=== PATIENT | male | born 1985 | race Native Hawaiian/Other Pacific Islander ===

== ENCOUNTER 2017-07-18 05:44 | Emergency (ER) | payer OTHER ==
[2017-07-18 05:50] VITALS: TEMP 97.1
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
[2017-07-18 07:33] VITALS: BP 144/75; PULSE 77; RESP 16
== END 2017-07-18 07:40 | disposition home or self-care (01) ==
LOC: EC 05:44
DX: K40.90 Unilateral inguinal hernia, without obstruction or gangrene, not specified as recurrent (principal); R05 Cough; F17.200 Nicotine dependence, unspecified, uncomplicated
CPT/HCPCS: 99283

== ENCOUNTER 2017-08-06 11:39 | Emergency (ER) | payer OTHER ==
[2017-08-06 11:47] VITALS: RESP 18
[2017-08-06] MEDS ORDERED: SODIUM CHLORIDE 0.9% 500 ML IV STA (12:20)
[2017-08-06] MEDS ORDERED: RX INFO: IV CONTRAST WAS GIVEN 1 EACH MISC MISCELLANE PRN (12:20)
[2017-08-06] MEDS ORDERED: SODIUM CHLORIDE 0.9% 1,000 ML IV STA (12:20)
[2017-08-06 12:49] LABS: Basophils % (A) 1 %; CH 30.6; CHCM 34.5; Eosinophils # (A) 0.2 k/uL (0-0.7); Eosinophils % (A) 2 %; HCT 46.1 % (39.0-53.0); HDW 2.41; HGB 15.4 gm/dL (13.0-17.5); Luc # (Auto) 0.14; Luc % (Auto) 2; Lymphocytes # (A) 1.8 k/uL (1.0-4.8); Lymphocytes % (A) 23 %; MCH 29.7 pg (25.0-35.0); MCHC 33.3 g/dL (31.0-37.0); Mean Platelet Volume 7.4; Monocytes # (A) 0.4 k/uL (0-1.0); Monocytes % (A) 5 %; Neutrophils # (A) 5.4 k/uL (1.3-7.7); Neutrophils % (A) 67 %; RBC 5.18 m/uL (4.30-5.90); RDW 14.2 % (11.5-15.5); WBC (Perox) 8.13
[2017-08-06 13:03] LABS: ALT 30 U/L (21-72); AST 19 U/L (17-59); Alkaline Phosphatase 72 U/L (38-126); Amylase 34 U/L (30-110); Anion Gap 11 mmol/L; Blood Urea Nitrogen 13 mg/dL (9-20); Calcium 9.2 mg/dL (8.4-10.2); Carbon Dioxide 25 mmol/L (22-30); Chloride 104 mmol/L (98-107); Glucose 72 mg/dL (74-99); Non-African American GFR(MDRD) >60 (>60 ml/min/1.73 sqM); Potassium 4.2 mmol/L (3.5-5.1); Sodium 140 mmol/L (137-145); Total Bilirubin 0.2 mg/dL (0.2-1.3); Total Protein 7.3 g/dL (6.3-8.2)
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
[2017-08-06 13:56] LABS: Appearance,Urine Clear (Clear); Bilirubin,Urine Negative (Negative); Glucose,Urine (UA) Negative (Negative); Ketones,Urine Negative (Negative); Leukocyte Esterase,Urine Negative (Negative); Nitrite,Urine Negative (Negative); PH, Urine 6.5 (5.0-8.0); Protein,Urine Negative (Negative); Specific Gravity,Urine 1.024 (1.001-1.035); UA Billing (MACRO vs. MICRO) CHEM; Urobilinogen,Urine <2.0 mg/dL (<2.0)
--- NOTE | 2017-08-06 13:57 | CT ---
EXAMINATION TYPE: CT abdomen pelvis w con DATE OF EXAM: 08/06/2017 COMPARISON: NONE HISTORY: 31-year-old male complains of left side inguinal pain. Patient claims known left inguinal he rnia. TECHNIQUE: Contiguous axial scanning of the abdomen and pelvis following administration of 100 ml Omn ipaque 300 IV contrast. Delayed images through the kidneys and coronal/sagittal reconstructions perf ormed. CT DLP: 874.6 mGycm Automated exposure control for dose reduction was used. FINDINGS: The heart is normal size without pericardial effusion. Strandy atelectasis or scarring at the base of the right middle lobe. No pleural effusion. Liver is enlarged measuring 21.1 cm craniocaudal. No focal lesion is seen. No biliary ductal dilatation. Portal venous system is patent. Gallbladder, adrenal glands, kidneys, spleen, and pancreas show no gross abnormal body. No dilated small bowel, free fluid, or free air. Portions of a normal appendix are seen. There is mod erate stool burden without pericolonic inflammatory change. Scattered small mesenteric lymph nodes are noted. Bladder is urine distended. No abnormal fluid collection the pelvis or pelvic lymphadenopathy seen. N o sizable inguinal or femoral canal hernia seen. Bones: Suspected old healed fracture deformity of the left L4 and L2 transverse processes. No osseous destructive process. IMPRESSION: 1. NO SIZABLE INGUINAL OR FEMORAL CANAL HERNIA SEEN. 2. HEPATOMEGALY. CLINICALLY CORRELATE. 3. MODERATE STOOL BURDEN.
[2017-08-06 14:20] VITALS: BP 115/55; PULSE 61; TEMP 97.7
[2017-08-06] MEDS ORDERED: KETOROLAC 30 MG/ML 1 ML VIAL IVP SCH (18:00)
== END 2017-08-06 14:32 | disposition home or self-care (01) ==
LOC: EC 11:39
DX: K40.91 Unilateral inguinal hernia, without obstruction or gangrene, recurrent (principal); F17.200 Nicotine dependence, unspecified, uncomplicated
CPT/HCPCS: 36415; 80053; 82150; 83690; 85025; 81003; 87086; 74177; 99284; 96374; 96361; J1885; Q9967

== ENCOUNTER 2017-08-26 08:05 | Day surgery (SDC) | payer OTHER ==
[~2017-08-26 08:05] MED LIST: HEPARIN SODIUM,PORCINE 5,000 UNIT/ML 1 ML VIAL SQ ONE; Pre Op ABX Message 1 EACH MISC MISCELLANE ONE
[2017-08-26] MEDS ORDERED: LACTATED RINGERS 1,000 ML IV ONE ×3 (08:55→11:32)
[2017-08-26] MEDS ORDERED: ONDANSETRON 4 MG/2 ML VIAL IVP ONE ×2 (09:11→09:17)
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
[2017-08-26] MEDS ORDERED: DEXAMETHASONE SOD PHOSPHATE 10 MG/ML 1 ML VIAL IV ONE ×2 (09:13→09:17)
[2017-08-26] MEDS ORDERED: LACTATED RINGERS 1,000 ML IV SCH (09:17)
[2017-08-26] MEDS ORDERED: LIDOCAINE 1% INJ 10MG/ML (20 ML MDV) ONE (09:23)
[2017-08-26] MEDS ORDERED: NEOSTIGMINE 1 MG/ML 10 ML VIAL ONE (09:23)
[2017-08-26] MEDS ORDERED: PROPOFOL 10 MG/ML 20 ML VIAL IV ONE (09:23)
[2017-08-26] MEDS ORDERED: GLYCOPYRROLATE 0.2 MG/ML 2 ML VIAL ONE (09:23)
[2017-08-26] MEDS ORDERED: ROCURONIUM BROMIDE 10 MG/ML 10 ML VIAL IV ONE (09:23)
[2017-08-26] MEDS ORDERED: MIDAZOLAM 2 MG/2 ML VIAL ONE (09:23)
[2017-08-26] MEDS ORDERED: ceFAZolin 1,000 MG VIAL ONE (09:23)
[2017-08-26] MEDS ORDERED: fentaNYL (PF) 50 MCG/ML 2 ML AMP ONE (09:23)
[2017-08-26] MEDS ORDERED: BUPIVACAINE (PF) 0.25% 30 ML VIAL SQ ONE (09:41)
[2017-08-26] MEDS ORDERED: SODIUM CHLORIDE 0.9% 50 ML with ceFAZolin 2,000 MG IV ONE ×2 (09:42)
--- NOTE | 2017-08-26 10:24 | P.OP ---
Date of Procedure: 08/26/17 Preoperative Diagnosis: Left inguinal hernia Postoperative Diagnosis: Left inguinal hernia Procedure(s) Performed: Laparoscopic robotic-assisted repair of left inguinal hernia Anesthesia: TAHIR Surgeon: Fredy Contreras Estimated Blood Loss (ml): 5 Pathology: none sent Condition: stable Disposition: PACU Description of Procedure: The patient's placed on the operating table in the supine position. The patient received general anesthesia. The patient's abdomen was prepped and draped in usual sterile fashion. The skin was anesthetized 1% local Xylocaine at the incision sites. Using an 11 blade a skin incision was made at the umbilicus. The fascia was grasped with a Teo and then the peritoneal cavity was entered with the Veress needle. Position of the Veress needle was confirmed with a positive drop test. After adequate insufflation a 5 mm trocar was placed into the peritoneal cavity. The Laparoscope was placed the peritoneal cavity. And a robotic 8 mm trocar was placed in the right lateral position and then another 8 mm robotic trochars placed in the left lateral position. The original 5 mm trocar was exchanged for a 12 mm trocar. The patient was placed in reverse Trendelenburg and then the patient was docked to the robot. Next the peritoneum over top of the hernia was incised and then using blunt and sharp dissection and electrocautery the hernia sac was dissected free from the floor of the inguinal canal. The hernia sac was completely reduced into the peritoneal cavity. And then using the [employer] superior court justice mesh the hernia was repaired. The peritoneum was then sutured with 20V lock suture. The patient was then undocked the robot. The needle was withdrawn from the peritoneal cavity. The umbilical trocar site was closed with 0 Ethibond suture. The skin was closed interrupted 3-0 Monocryl suture. Dermabond dressing was applied. Patient was sent to recovery in stable condition.
[2017-08-26 10:48] VITALS: RESP 16; TEMP 97.3
[2017-08-26] MEDS: HYDROmorphone 0.5 MG/0.5 ML SYRINGE IVP PRN ×2 (12:05→12:18)
[2017-08-26] MEDS ORDERED: HYDROcodone/APAP 7.5-325MG 1 EACH TAB PO ONE (12:39)
[2017-08-26 13:40] VITALS: BP 106/66; PULSE 50
== END 2017-08-26 14:19 | disposition home or self-care (01) ==
LOC: OR 08:05
PROVIDERS: ATTEND Surgery
DX: K40.90 Unilateral inguinal hernia, without obstruction or gangrene, not specified as recurrent (principal); I48.91 Unspecified atrial fibrillation; F17.200 Nicotine dependence, unspecified, uncomplicated; Z86.73 Personal history of transient ischemic attack (TIA), and cerebral infarction without residual deficits
CPT/HCPCS: 49650; S2900

== ENCOUNTER 2017-12-15 02:22 | Emergency (ER) | payer SELFPAY ==
[2017-12-15] MEDS ORDERED: KETOROLAC 60 MG/2 ML VIAL IM STA (02:45)
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
--- NOTE | 2017-12-15 03:16 | XR ---
EXAM: XR Chest, 2 Views CLINICAL HISTORY: Reason: Difficulty breathing TECHNIQUE: Frontal and lateral views of the chest. COMPARISON: 06/27/16 FINDINGS: Lungs: Stable scarring in the right base. Pleural space: Unremarkable. No pneumothorax. Heart: Unremarkable. No cardiomegaly. Mediastinum: Unremarkable. Bones/joints: Unremarkable. IMPRESSION: No acute findings.
[2017-12-15] MEDS ORDERED: RX INFO: IV CONTRAST WAS GIVEN 1 EACH MISC MISCELLANE PRN (03:38)
[2017-12-15 03:45] LABS: Basophils % (A) 0 %; Eosinophils # (A) 0.1 k/uL (0-0.7); Eosinophils % (A) 1 %; HCT 47.8 % (39.0-53.0); HGB 14.8 gm/dL (13.0-17.5); Lymphocytes # (A) 1.8 k/uL (1.0-4.8); Lymphocytes % (A) 16 %; MCH 28.3 pg (25.0-35.0); MCV 91.4 fL (80.0-100.0); Mean Platelet Volume 7.6; Monocytes # (A) 0.7 k/uL (0-1.0); Monocytes % (A) 7 %; Neutrophils # (A) 8.1 k/uL (1.3-7.7); Neutrophils % (A) 75 %; Platelet Count 267 k/uL (150-450); RBC 5.23 m/uL (4.30-5.90); RDW 14.1 % (11.5-15.5); WBC 10.8 k/uL (3.8-10.6)
[2017-12-15 03:54] LABS: ALT 30 U/L (21-72); AST 26 U/L (17-59); Albumin 4.5 g/dL (3.5-5.0); Alkaline Phosphatase 85 U/L (38-126); Anion Gap 11 mmol/L; Blood Urea Nitrogen 13 mg/dL (9-20); Calcium 9.6 mg/dL (8.4-10.2); Carbon Dioxide 29 mmol/L (22-30); Chloride 101 mmol/L (98-107); Glucose 73 mg/dL (74-99); Potassium 4.1 mmol/L (3.5-5.1); Sodium 141 mmol/L (137-145); Total Bilirubin 0.3 mg/dL (0.2-1.3); Total Protein 7.7 g/dL (6.3-8.2)
--- NOTE | 2017-12-15 04:19 | CT ---
ADDENDUM - Added by Sirisha Pritchard MD on 12/15/2017 4:44 AM (-08:00) No evidence of PE. EXAM: CT Angiography Chest With Intravenous Contrast CLINICAL HISTORY: Reason: Pain TECHNIQUE: Axial computed tomographic angiography images of the chest with intravenous contrast using pulmonary embolism protocol. DLP is 461.30 mGy-cm. This CT exam was performed using one or more of the following dose reduction techniques: automated exposure control, adjustment of the mA and/or kV according to patient size, and/or use of iterative reconstruction technique. MIP reconstructed images were created and reviewed. CONTRAST: 70 mL of omnipaque 350 administered intravenously. COMPARISON: 06/25/16 FINDINGS: Heart and mediastinum are within normal limits. Stable subcentimeter mediastinal lymph nodes. Patchy infiltrates demonstrated in the right middle and right lower lobes. Left lung is clear. No pleural or pericardial effusion. No pneumothorax. Osseous structures are intact. Osseous stress the visualized upper abdomen is unremarkable. IMPRESSION: Scattered patchy infiltrates in the right middle lobe and right lower lobe. Findings are nonspecific but are concerning for infectious etiologies. Correlate clinically.
[2017-12-15] MEDS ORDERED: cefTRIAXone IN SWFI 2,000 MG/20 ML SYRINGE IVP STA (04:28)
[2017-12-15] MEDS ORDERED: AZITHROMYCIN 500 MG TAB PO STA (04:43)
[2017-12-15 05:06] VITALS: BP 140/67; PULSE 80; RESP 20; TEMP 97.6
== END 2017-12-15 05:12 | disposition home or self-care (01) ==
LOC: EC 02:22
DX: J18.9 Pneumonia, unspecified organism (principal); H92.03 Otalgia, bilateral; F17.200 Nicotine dependence, unspecified, uncomplicated
CPT/HCPCS: 36415; 93005; 80053; 84484; 85025; 71046; 71275; 99285; 96374; 96372; Q9967; J0696; J1885

== ENCOUNTER → 2021-05-16 | Outpatient (CLI) | payer OTHER ==
--- NOTE | 2021-05-16 23:19 | CT ---
EXAMINATION TYPE: CT brain wo con DATE OF EXAM: 05/16/2021 COMPARISON: 08/18/2012 INDICATION: c/o dizziness, fatigue DLP: 1029.9 mGycm, Automated exposure control for dose reduction was used. CONTRAST: None CT of the brain is performed utilizing 3 mm thick sections through the posterior fossa and 3 mm thick sections through the remaining calvarium. Study is performed within 24 hours of arrival to the hosp [facility]. No abnormal hyperdensity is present to suggest an acute intracranial hemorrhage. No mass lesion is evident. No acute infarcts are evident. Ventricles and sulci are appropriate for the patient age. Paranasal sinuses and mastoid air cells within the [id number] are clear. IMPRESSIONS: 1. Normal CT Brain
== END | disposition home or self-care (01) ==
LOC: RADCTMAIN 17:37
PROVIDERS: ATTEND Family Medicine
DX: R42 Dizziness and giddiness (principal)
CPT/HCPCS: 70450

== ENCOUNTER → 2021-05-30 | Outpatient (CLI) | payer OTHER ==
--- NOTE | 2021-05-30 18:44 | CONS ---
CONSULTATION DATE OF SERVICE: 05/30/2021 A 35-year-old gentleman has [facility] for obstructive sleep apnea- hypopnea syndrome. SLEEP SCHEDULE: Patient's usual sleep schedule from midnight until 5 or 6 a.m. on working days and on weekends he does not have real schedule. FALLING ASLEEP: No problems with falling asleep, although he has TV set in bedroom. DURING SLEEP: He usually sleeps on the back and side position. He has loud snoring and witnessed episodes of stopped breathing during sleep. He wakes up from sleep 2 times with nocturia. Positive history of dry mouth, panic attacks, palpitations, heartburn, restless legs, sleep talking and sweating. DURING THE DAY/SLEEP WAKE EVALUATION: In the morning, patient wakes up tired, has difficulties to pay attention, falling asleep during the day, worries about his sleep, has problems with memory, concentration, irritability, depression, anxiety, sexual dysfunction. Nevis Sleepiness Scale is in extremely high range of 24, possibly positive history of hypnagogic hallucinations. No history of sleep paralysis or cataplexy. During the day patient may take one nap around 11:00 a.m. May be refreshed after nap. Usually no vivid dreams during naps. PAST MEDICAL HISTORY: Positive for paroxysmal atrial fibrillation and depression, hyperlipidemia, asthma, stroke at age of 24 with abnormalities of some motor function, no residual deficit, sinusitis, headaches, acid reflux. MEDICATIONS: Wellbutrin, Cialis. SOCIAL HISTORY: Positive for smoking marijuana. Alcohol consumption socially. FAMILY HISTORY: Hypertension, acid reflux, diabetes. REVIEW OF SYSTEMS: Snoring, awakenings from sleep, significant excessive daytime sleepiness. PHYSICAL EXAMINATION: A 35-year-old gentleman without distress. BP 154/93, HR 104, RR 16, height 6 feet 0 inches, weight 266, body mass index 36, temperature 98.4, oxygen saturation at room air 97%. Oropharynx: Low position of soft palate, Mallampati 4, wide neck 17 inches in circumference. NECK: Supple, no JVD. Thyroid is not palpable. LUNGS: Clear to percussion and to auscultation. Good air exchange. No wheezing or rhonchi. HEART: S1, S2 regular. No murmurs, gallops, or rubs. ABDOMEN: Soft and nontender. Bowel sounds are present. No organomegaly appreciated. EXTREMITIES: No clubbing or cyanosis. 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 Cranial nerves 2 to 7 intact. There is no fasciculation or atrophy. noted. No focal deficits observed. IMPRESSION: 1. Loud snoring, witnessed episodes of stopped breathing during sleep. Low position of soft palate wide neck 17-1/2 inches in circumference, sleepiness, obstructive sleep apnea-hypopnea syndrome. 2. Extremely high excessive daytime sleepiness with Nevis Sleepiness Scale of 24 dictate necessity to include narcolepsy in differential diagnosis, especially the patient has possibly positive history of hypnagogic hallucinations. 3. History of paroxysmal atrial fibrillation. 4. History of depression. 5. Hyperlipidemia. 6. History of a stroke at age of 24 with some abnormalities of precise motor function, no residual deficit at the present time. 7. History of asthma. 8. Hyperlipidemia. 9. History of sinusitis. 10.Episodes of headaches. 11.Acid reflux. 12.Restless legs syndrome. PLAN: 1. Polysomnography for evaluation of patient's breathing during sleep. 2. CPAP/BiPAP titration if sleep study confirms obstructive sleep apnea-hypopnea syndrome. 3. Preferable position during sleep on the side. 4. No driving if patient feels any sleepiness. 5. I will see patient for follow up visit to explain results of testing and following plan. Thank you very much for referring this patient for consultation. Sincerely, Chad Ortiz MD, PhD, FAASM Diplomat of [employer] Development Scientist of [facility] [place] MMODL / IJN: [id number] /
== END ==
LOC: SLEEP 15:48
PROVIDERS: ATTEND Internal Medicine
DX: G47.33 Obstructive sleep apnea (adult) (pediatric) (principal); I48.0 Paroxysmal atrial fibrillation; E78.5 Hyperlipidemia, unspecified; F32.9 Major depressive disorder, single episode, unspecified; G25.81 Restless legs syndrome; J45.909 Unspecified asthma, uncomplicated; K21.9 Gastro-esophageal reflux disease without esophagitis; Z86.73 Personal history of transient ischemic attack (TIA), and cerebral infarction without residual deficits; Z87.09 Personal history of other diseases of the respiratory system; F17.290 Nicotine dependence, other tobacco product, uncomplicated
CPT/HCPCS: 99211